=== PATIENT | female | born 1990 | race Caucasian/White ===

== ENCOUNTER 2018-11-16 21:59 | Emergency (ER) | payer SELFPAY ==
[2018-11-16] MEDS ORDERED: Ketorolac 60 MG/2 ML SDV IM ONE (22:46)
--- NOTE | 2018-11-16 22:46 | EDM.PDOC ---
ED HPI GENERAL MEDICAL PROBLEM - General Chief Complaint: ENT Problem Stated Complaint: BAD TEETH Time Seen by Provider: 11/16/18 22:47 Source of Information: Reports: Patient History Limitations: Reports: No Limitations - History of Present Illness INITIAL COMMENTS - FREE TEXT/NARRATIVE: pt is having severe pain in hwer left molar area. This started about supper time. She has not seen a dentist for 1 year. She is not on a antibiotic. She is normally seen at [facility] Onset: Today, Sudden Duration: Hour(s): Location: Reports: Other ( dental pain) Associated Symptoms: Reports: No Other Symptoms - Related Data Allergies Allergy/AdvReac Type Severity Reaction Status Date / Time amoxicillin [Amoxicillin] Allergy Hives Verified 07/19/13 20:45 Penicillins Allergy Hives Verified 07/19/13 20:45 Home Meds: Home Meds Albuterol Sulfate [Albuterol Sulfate HFA] 7 gm IH PRN 07/19/13 [History] ED ROS ENT - Review of Systems Review Of Systems: See Below Constitutional: Reports: No Symptoms HEENT: Reports: Dental Pain Respiratory: Reports: No Symptoms Cardiovascular: Reports: No Symptoms Endocrine: Reports: No Symptoms GI/Abdominal: Reports: No Symptoms : Reports: No Symptoms Musculoskeletal: Reports: No Symptoms Skin: Reports: No Symptoms Neurological: Reports: No Symptoms ED EXAM, ENT - Physical Exam Exam: See Below Text/Narrative:: pt has severe dental pain in the left upper molar area. She has not gotten relief with motrin Exam Limited By: No Limitations General Appearance: Alert, Anxious Ears: Normal TMs Nose: Normal Inspection Mouth/Throat: Dental Pain, Dental Tenderness Head: Atraumatic Neck: Normal Inspection, Lymphadenopathy (R), Lymphadenopathy (L) Respiratory/Chest: No Respiratory Distress Cardiovascular: Regular Rate, Rhythm Course - Vital Signs Last Recorded V/S: Last Vital Signs Temp 36.2 C 11/16/18 22:38 Pulse 75 11/16/18 22:38 Resp 16 11/16/18 22:38 BP 124/85 11/16/18 22:38 Pulse Ox 98 11/16/18 22:38 - Orders/Labs/Meds Meds: Medications Discontinued Medications Generic Name Dose Route Start Last Admin Trade Name Freq PRN Reason Stop Dose Admin Hydrocodone Bitart/Acetaminophen 1 tab 11/16/18 22:47 [place] 325-5 Mg PO 11/16/18 22:48 ONETIME ONE Ketorolac Tromethamine 60 mg 11/16/18 22:46 Toradol IM 11/16/18 22:47 ONETIME ONE - Re-Assessments/Exams Free Text/Narrative Re-Assessment/Exam: 11/16/18 22:56 pt was given torodol 60 mg im. Departure - Departure Time of Disposition: 22:49 Disposition: Home, Self-Care 01 Condition: Fair Clinical Impression: Pain, dental - Discharge Information Referrals: PCP,None [Primary Care Provider] - Forms: ED Department Discharge Care Plan Goals: kelex 500mg tid, tramodol 50mg q6h prn for pain. Call tomorrow am to get a appt at [facility] in [place] where she usually goes
[2018-11-16] MEDS ORDERED: Acetaminophen/HYDROcodone 325-5 MG Tab PO ONE (22:47)
== END 2018-11-16 23:18 | disposition home or self-care (01) ==
LOC: JP.ED 21:59
DX: K08.89 Other specified disorders of teeth and supporting structures (principal); Z88.1 Allergy status to other antibiotic agents; Z88.0 Allergy status to penicillin
CPT/HCPCS: 96372; 99282; A9270; J1885

== ENCOUNTER 2019-09-23 20:05 | Emergency (ER) | payer MEDICAID ==
[2019-09-23] MEDS ORDERED: Albuterol/Ipratropium 3.0-0.5 MG/3 ML Neb Soln NEB ONE (22:39)
--- NOTE | 2019-09-23 22:39 | EDM.PDOC ---
ED HPI GENERAL MEDICAL PROBLEM - General Chief Complaint: Respiratory Problem Stated Complaint: SOB, COUGH Time Seen by Provider: 09/23/19 22:31 Source of Information: Reports: Patient History Limitations: Reports: No Limitations - History of Present Illness INITIAL COMMENTS - FREE TEXT/NARRATIVE: Patient presents for evaluation of 3 days of persistent cough and shortness of breath. She has a history of asthma and normally uses an albuterol inhaler when having trouble. For some reason her pharmacy has not been able to fill it for her recently. She gets protracted paroxysms of coughing and then gets lightheaded and tingly fingers. It is been a while since she is ever had a cough and shortness of breath like this but denies any other recent illness. She has not been on prednisone for cough or breathing symptoms in the last 6 months. Onset: Gradual Duration: Day(s): (3) Location: Reports: Chest Quality: Reports: Ache, Dull Severity: Moderate Improves with: Reports: None Worsens with: Reports: Breathing, Movement Associated Symptoms: Reports: Cough, Headaches, Shortness of Breath Middle Anterior Chest Pain Score (Numeric/FACES): 8 - Related Data Allergies Allergy/AdvReac Type Severity Reaction Status Date / Time amoxicillin [Amoxicillin] Allergy Hives Verified 07/19/13 20:45 doxepin Allergy Itching Verified 09/23/19 21:28 Penicillins Allergy Hives Verified 07/19/13 20:45 Home Meds: Home Meds Albuterol Sulfate [Albuterol Sulfate HFA] 2 inhaler IH PRN 07/19/13 [History] Gabapentin [Gralise] 1,200 mg PO DAILY 09/23/19 [History] Imipramine HCl 10 mg PO BID 09/23/19 [History] traMADol [Ultram] 50 mg PO Q4H PRN 09/23/19 [History] Past Medical History HEENT History: Reports: Sinusitis Respiratory History: Reports: Asthma [employer]FACE [employer]ER History: Reports: Musculoskeletal History: Reports: Fibromyalgia Social & Family History - Tobacco Use Smoking Status *Q: Current Every Day Smoker Years of Tobacco use: 15 Packs/Tins Daily: 0.5 - Caffeine Use Caffeine Use: Reports: Coffee, Soda - Recreational Drug Use Recreational Drug Use: No ED ROS GENERAL - Review of Systems Review Of Systems: See Below Constitutional: Reports: Malaise HEENT: Reports: Throat Pain Respiratory: Reports: Shortness of Breath, Wheezing, Cough Cardiovascular: Reports: No Symptoms GI/Abdominal: Reports: No Symptoms Musculoskeletal: Reports: Back Pain (Upper back pain from coughing spells.) ED EXAM, GENERAL - Physical Exam Exam: See Below Free Text/Narrative:: This is an adult female who has intense, loud coughing spells prior to me entering the room. As we talk she is forcibly exhaling deeply. I encouraged her not to do so to avoid hyperventilating. Exam Limited By: No Limitations General Appearance: Alert, Moderate Distress Throat/Mouth: Normal Oropharynx, Normal Voice Head: Atraumatic Neck: No: Lymphadenopathy (R), Lymphadenopathy (L) Respiratory/Chest: Respiratory Distress, Decreased Breath Sounds, Wheezing. No: Crackles Cardiovascular: Regular Rate, Rhythm, Tachycardia GI/Abdominal: Normal Bowel Sounds, Soft Course - Vital Signs Last Recorded V/S: Last Vital Signs Temp 36.0 C L 09/23/19 21:38 Pulse 109 H 09/23/19 21:38 Resp 30 H 09/23/19 21:38 BP 133/94 H 09/23/19 21:38 Pulse Ox 99 09/23/19 21:38 - Orders/Labs/Meds Orders: Active Orders 24 hr Category Date Time Status RT Aerosol Therapy [RC] ASDIRECTED Care 09/23/19 22:39 Active Meds: Medications Discontinued Medications Generic Name Dose Route Start Last Admin Trade Name Janq PRN Reason Stop Dose Admin Albuterol/Ipratropium 3 ml 09/23/19 22:39 09/23/19 22:49 Duoneb 3.0-0.5 Mg/3 Ml NEB 09/23/19 22:40 3 ml ONETIME ONE Administration - Re-Assessments/Exams Free Text/Narrative Re-Assessment/Exam: 09/24/19 04:40 Patient received 1 DuoNeb treatment which improved aeration and overall breathing status. She has not had an albuterol inhaler for some time, she says almost 1 month. She has never had a spacer for her inhaler. [facility] prescriptions were entered for an albuterol inhaler, home prednisone course, benzonatate capsules. A paper prescription for a metered-dose inhaler spacer was sent with the patient also. Proper inhaler technique was personally reviewed with the patient. She should take the prednisone at a dose of 40 mg daily over the next 5 days. If she is not improved over the next several days, she should recheck here. She should also contact primary care to arrange a refill status of her albuterol. She was discharged in improved condition. Departure - Departure Time of Disposition: 23:41 Disposition: Home, Self-Care 01 Clinical Impression: Exacerbation of asthma Qualifiers: Asthma severity: mild Asthma persistence: intermittent Qualified Code(s): J45.21 - Mild intermittent asthma with (acute) exacerbation - Discharge Information Instructions: Asthma, Adult Referrals: PCP,None [Primary Care Provider] - Forms: ED Department Discharge Additional Instructions: Use albuterol inhaler 2 puffs every 4 hours as needed. Inhaler with a spacer and hold medication for 15 seconds before breathing outflow through your nose. Start prednisone tonight taking 4 tablets now and then 4 tablets every morning over the next 4 mornings. You will have a couple prednisone tablets remaining. Use the benzonatate cough capsules as needed over the next day or 2. Be sure to scrap picker your inhaler spacer to let it helps the albuterol be more effective. Sepsis Event Note (ED) - Evaluation Sepsis Screening Result: No Definite Risk - Focused Exam Vital Signs: Vital Signs Temp Pulse Resp BP Pulse Ox 09/23/19 21:38 36.0 C L 109 H 30 H 133/94 H 99 - My Orders Last 24 Hours: My Active Orders 09/23/19 22:39 RT Aerosol Therapy [RC] ASDIRECTED - Assessment/Plan Last 24 Hours: My Active Orders 09/23/19 22:39 RT Aerosol Therapy [RC] ASDIRECTED
== END 2019-09-23 23:52 | disposition home or self-care (01) ==
LOC: JP.ED 20:05
DX: J45.21 Mild intermittent asthma with (acute) exacerbation (principal); J45.909 Unspecified asthma, uncomplicated; F17.210 Nicotine dependence, cigarettes, uncomplicated; Z88.1 Allergy status to other antibiotic agents; Z88.0 Allergy status to penicillin; Z79.899 Other long term (current) drug therapy
CPT/HCPCS: 94640; 99284; 99284-25; J7620-GY